=== PATIENT | male | born 1990 | race Caucasian/White ===

== ENCOUNTER 2022-08-19 22:57 | Emergency (ER) | payer MEDICAID ==
[~2022-08-19] VITALS: Ht 177.8 cm; Wt 82.0 kg
[2022-08-19 23:01] VITALS: O2SAT 99
[2022-08-20] MEDS ORDERED: HYDR25TA MT ×2 (17:29)
[2022-08-22 18:00] VITALS: BP 145/80; PULSE 80; RESP 16; TEMP 98.5
== END 2022-08-22 19:13 | disposition home or self-care (01) ==
LOC: ER 22:57
DX: I10 Essential (primary) hypertension (principal)
CPT/HCPCS: 71045; 99285